=== PATIENT | male | born 1990 | race Caucasian/White ===

== ENCOUNTER 2017-03-06 09:20 | Emergency (ER) | payer OTHER ==
[~2017-03-06] VITALS: Ht 188 cm; Wt 150.6 kg
[2017-03-06 09:30] VITALS: TEMP 36.9; Ht 188 cm; Wt 150.6 kg
[2017-03-06] MEDS ORDERED: RABIES IMMUNE GLOBULIN (HUMAN) 150 INTER.UNIT/ML 2 ML VIAL IM. ONE (09:45)
[2017-03-06] MEDS ORDERED: DIPHTHERIA/TETANUS/PERTUSSIS 0.5 ML SYR/VIAL IM. ONE (09:45)
[2017-03-06] MEDS ORDERED: RABIES VACCINE (IMOVAX) HUMAN DIPL CELL 2.5 INTER.UNIT/ML SYR IM. ONE (09:45)
[2017-03-06] MEDS ORDERED: PANT40TA PO (09:45)
[2017-03-06] MEDS ORDERED: CETI10TA84 PO (09:45)
--- NOTE | 2017-03-06 09:50 | EMERGENCY ROOM VISIT NOTE ---
History First contact with patient: 09:32 Chief Complaint: RABIES VACCINE Stated Complaint: NEED TETNUS SHOT History of Present Illness The patient is a 26 year old male who presents to the Emergency Room via private vehicle with complaints of "awoke with back in room this AM". 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 He states that this morning around 2 to 2:30 AM, he heard the shutters on the windows making noise, and realized that there was a bat in his room. His last tetanus shot was on Sep 102007. He denies any other complaints today, and notes that he does not think he was bitten. The bat is being tested by [facility] laboratory. He is not immunocompromised, and has never received the rabies vaccine. Review of Systems A complete 10-point Review of Systems was discussed with the patient, with pertinent positives and negatives listed in the History of Present Illness. All remaining Review of Systems questions can be considered negative unless otherwise specified. Past Medical/Surgical History Gastritis. Family History Breast cancer Social History Smoking Status: Never Smoker Social History: Patient is currently a resident life coordinator. Current/Historical Medications Scheduled Cetirizine (Zyrtec), 10 MG PO DAILY Pantoprazole (Protonix), 40 MG PO DAILY Allergies Coded Allergies: No Known Allergies (Unverified , 03/06/17) Physical Exam Vital Signs Date Time Temp Pulse Resp B/P (MAP) Pulse Ox O2 Delivery O2 Flow Rate FiO2 03/06/17 11:40 74 17 134/90 97 03/06/17 09:30 36.9 79 18 147/98 96 Room Air Physical Exam VITAL SIGNS - Vital signs and nursing notes were reviewed. Afebrile, blood pressure 147/98, non-tachycardic and is saturating well on room air 96%. GENERAL -26-year-old male appearing his stated age who is in no acute distress. Communicates well with provider and answers questions appropriately. SKIN - Without rashes. No breaks in the integument. Medical Decision & Procedures Medications Administered Medications (Trade) Dose Ordered Sig/Claudine Route Start Time Stop Time Status Last Admin Dose Admin Diphtheria/ Pertussis/Tetanus Vacc (Adacel Inj) 0.5 ml ONCE ONCE IM. 03/06/17 09:45 03/06/17 09:46 DC 03/06/17 10:43 0.5 ML Rabies Vaccine Human Diploid Cell (Imovax Rabies) 2.5 interunit ONCE ONCE IM. 03/06/17 09:45 03/06/17 09:46 DC 03/06/17 10:39 2.5 INTERUNIT Rabies Immune Globulin (Imogam Rabies Inj) 3,012 interunit ONCE ONCE IM. 03/06/17 09:45 03/06/17 09:46 DC 03/06/17 10:42 3,012 INTERUNIT Medical Decision Patient was seen and evaluated as above. He presents to us today with need for rabies and tetanus series secondary to his exposure to a bat in the dormitory. His last tetanus shot was in 2007, therefore I will vaccination today against tetanus, as well as the rabies series. He is otherwise healthy without complaints. He was given weight-based immunoglobulin, as well as the Imovax. He is to return on subsequent days for vaccination of which were clearly outlined with the patient. He was educated upon worrisome symptoms which to return, had questions prior to discharge, and was discharged home in good condition. In evaluation treatment of this patient the following differential diagnoses were entertained: Encounter for prophylactic need of rabies series, need for tetanus, exposure to bat, among others. Impression Primary Impression: Rabies, need for prophylactic vaccination against Departure Information Dispostion Home / Self-Care Condition GOOD Referrals No Doctor, Assigned (PCP) Patient Instructions My [facility] Additional Instructions You were seen in the emergency department for vaccination against rabies. You have received your tetanus shot and rabies series. Today's considered is considered a 0, you will need to return on days 3, 7, and 14. This is March 09, March 13, and March 20. It is important that you return on these days for the Imovax. Please return the emergency department with any new/concerning symptoms.
[2017-03-06 11:40] VITALS: BP 134/90; PULSE 74; O2SAT 97
== END 2017-03-06 11:40 | disposition home or self-care (01) ==
LOC: C.EDB 09:23
DX: Z20.3 Contact with and (suspected) exposure to rabies (principal); Z23 Encounter for immunization; Z80.3 Family history of malignant neoplasm of breast; Z79.899 Other long term (current) drug therapy